=== PATIENT | female | born 1930 | race Caucasian/White ===

== ENCOUNTER 2016-11-17 12:43 | Emergency (ER) | payer OTHER ==
[~2016-11-17] VITALS: Ht 157.5 cm; Wt 75.1 kg
[~2016-11-17 12:43] MED LIST: COLACE100 MG PO; COZAAR50 MG PO; HUMALOG MI100 UNITS/ SC; HUMALOG100 UNITS/ SC; HYDROCHLOROTHIA25 MG PO; INSULIN; LEVAQUIN500 MG PO; LYRICA50 MG PO; Norvasc PO; NovoLIN N (NPH),Humu SC; PREVACID30 MG PO; VYTORIN 10/21 TABLET PO; Vytorin 10/20 PO; ZOCOR10 MG PO
[2016-11-17 13:00] LABS: POINT-OF-CARE METER ID UU13113778
[2016-11-17 13:16] LABS: MCH 30.6 PG (29.0-34.0); MCHC 32.7 G/DL (30.0-36.0); MEAN PLAT.VOLUME 11.5 uM^3 (9.5-12.4); PLATELET COUNT 155 K/uL (156-360); RBC DIS.WIDTH-CV 12.8 % (11.8-14.6); RBC DIS.WIDTH-SD 43.8 % (39-53); RED BLOOD COUNT 3.95 M/uL (3.80-5.20); WHITE BLOOD COUNT 6.9 K/uL (4.1-10.2)
[2016-11-17 13:20] LABS: MCV 93.7 FL (83-99)
[2016-11-17 13:26] LABS: CHLORIDE 99 mEq/L (99-109); SODIUM 136 mEq/L (136-147)
[2016-11-17 13:30] LABS: ANION GAP 11 MEQ/L (2-14); GLUCOSE 436 mg/dL (70-99)
[2016-11-17 13:31] LABS: TOTAL BILIRUBIN 0.6 mg/dL (0.0-1.0)
[2016-11-17 13:32] LABS: ALKALINE PHOSPHATASE 97 IU/L (3-129); GFR ESTIMATE (CALCULATED) > 59 mL/min/
[2016-11-17 13:33] LABS: UREA NITROGEN (BUN) 16 mg/dL (9-23)
[2016-11-17 15:51] LABS: ADD MIUA? NO; BILIRUBIN NEGATIVE; BLOOD NEGATIVE; COLOR COLORLESS ((YELLOW)); GLUCOSE (STRIP) 150; KETONES NEGATIVE; LEUKOCYTES NEGATIVE; NITRITE NEGATIVE; PROTEIN (STRIP) NEGATIVE; SPECIFIC GRAVITY 1.002 (1.000-1.030); UCUL ADDED? NO; UROBILINOGEN 0.2 MG/DL (0.2-1.0)
[2016-11-17 15:58] LABS: POINT-OF-CARE METER ID UU13113747
[2016-11-17 18:31] VITALS: BP 143/71
== END 2016-11-17 18:31 | disposition home or self-care (01) ==
LOC: EME 12:43
PROVIDERS: Nurse Practitioner Family
DX: E11.65 Type 2 diabetes mellitus with hyperglycemia (principal); J44.9 Chronic obstructive pulmonary disease, unspecified; G47.30 Sleep apnea, unspecified; E78.5 Hyperlipidemia, unspecified; I10 Essential (primary) hypertension; Z86.73 Personal history of transient ischemic attack (TIA), and cerebral infarction without residual deficits; Z86.711 Personal history of pulmonary embolism; Z95.2 Presence of prosthetic heart valve; Z79.4 Long term (current) use of insulin
CPT/HCPCS: 80053; 81003; 82948; 85027; 99281; 99284; J7030

== ENCOUNTER 2016-11-18 15:25 | Emergency (ER) | payer OTHER ==
[~2016-11-18] VITALS: Ht 160 cm; Wt 75.6 kg
[2016-11-18 15:28] VITALS: BP 163/53
[2016-11-18 15:44] LABS: POINT-OF-CARE METER ID UU13113778
== END 2016-11-18 15:43 | disposition left against medical advice (07) ==
LOC: EME 15:25
DX: E11.65 Type 2 diabetes mellitus with hyperglycemia (principal); Z79.4 Long term (current) use of insulin; Z86.73 Personal history of transient ischemic attack (TIA), and cerebral infarction without residual deficits; Z53.21 Procedure and treatment not carried out due to patient leaving prior to being seen by health care provider
CPT/HCPCS: 82948